=== PATIENT | female | born 1985 | race African-American/Black ===

== ENCOUNTER 2023-08-31 16:01 | Emergency (ER) | payer MEDICAID ==
[~2023-08-31] VITALS: Ht 172.7 cm; Wt 80.0 kg
[~2023-08-31 16:01] MED LIST: CALC-989 MT; FERR-63 PO; FOLI-43 MT; GABA-534 MT; HYDR200T35 PO; METR-167 MT; MYCO500T PO; P20 MT
[2023-08-31 16:07] VITALS: BP 132/83; PULSE 80; RESP 16; TEMP 98.1; O2SAT 98
[2023-08-31] MEDS ORDERED: ACETAMINOPHEN 325MG TABLET PO STA (16:14)
== END 2023-08-31 18:49 | disposition left against medical advice (07) ==
LOC: ER 16:01
DX: R53.1 Weakness (principal); F12.90 Cannabis use, unspecified, uncomplicated; F41.9 Anxiety disorder, unspecified; D57.1 Sickle-cell disease without crisis; A18.4 Tuberculosis of skin and subcutaneous tissue
CPT/HCPCS: 99283